=== PATIENT | female | born 1975 | race Caucasian/White ===

== ENCOUNTER 2019-04-20 21:41 | Observation (INO) ==
[2019-04-20] MEDS ORDERED: LORazepam 1 MG/2 ML VIAL IV STA (22:02)
[2019-04-20 22:23] LABS: Basophils # (auto) 0.04 K/uL (0-0.2); Basophils % (auto) 0.5 %; Eosinophils # (auto) 0.57 K/uL (0-0.5); Eosinophils % (auto) 7.5 %; Hematocrit (blood only) 39.2 % (37-47); Hemoglobin 13.2 g/dL (12.0-16.0); Immature Granulocytes # (auto) 0.02 K/uL (0.00-0.02); Immature Granulocytes % (auto) 0.3 %; Lymphocytes # (auto) 1.13 K/uL (1.2-3.4); Lymphocytes % (auto) 14.8 %; Mean Corpuscular Hemoglobin 27.8 pg (25-34); Mean Corpuscular Hgb Conc 33.7 g/dL (32-36); Mean Corpuscular Volume 82.7 fL (80-100); Mean Platelet Volume 10.1 fL (7.4-10.4); Monocytes # (auto) 0.57 K/uL (0.11-0.59); Monocytes % (auto) 7.5 %; Neutrophils # (auto) 5.28 K/uL (1.4-6.5); Neutrophils % (auto) 69.4 %; Platelet Count 224 K/uL (130-400); RDW Coefficient of Variation 13.3 % (11.5-14.5); RDW Standard Deviation 40.8 fL (36.4-46.3); Red Blood Count 4.74 M/uL (4.2-5.4); White Blood Count 7.61 K/uL (4.8-10.8)
--- NOTE | 2019-04-20 22:31 | XRay Report ---
SINGLE VIEW CHEST CLINICAL HISTORY: Atypical chest pain. FINDINGS: An AP, portable, upright chest radiograph is compared to study dated 05/11/2018. The examin ation is degraded by portable technique and patient rotation. The cardiomediastinal silhouette is unr emarkable. The lungs and pleural spaces are clear. No pneumothorax is seen. The bony thorax is grossl y intact. IMPRESSION: No active disease in the chest. Electronically signed by: Shyam Zaman M.D. 04/20/2019 10:28 PM
[2019-04-20 22:40] LABS: Alanine Aminotransferase 31 U/L (12-78); Aspartate Aminotransferase 18 U/L (15-37); BUN Creatinine Ratio 19.1 (10-20); Blood Urea Nitrogen 15 mg/dl (7-18); Calcium 9.3 mg/dl (8.5-10.1); Carbon Dioxide 25 mmol/L (21-32); Chloride 106 mmol/L (98-107); Creatinine Clr Calc Pharmacy 103.9 ml/min; Est GFR (African American) 107.3; Est GFR (Non-African American) 92.6; Glucose 116 mg/dl (70-99); Lipase 205 U/L (73-393); Potassium 3.7 mmol/L (3.5-5.1); Sodium 137 mmol/L (136-145)
[2019-04-20 22:45] LABS: Albumin Globulin Ratio 1.1 (0.9-2); Alkaline Phosphatase 91 U/L (45-117); Bilirubin,Total 0.4 mg/dl (0.2-1); Globulin 3.6 gm/dl (2.5-4.0); Total Protein 7.6 gm/dl (6.4-8.2); Troponin I < 0.015 ng/ml (0-0.045)
--- NOTE | 2019-04-20 23:42 | Emergency Department Note ---
History of Present Illness General Chief complaint: Cardiac Assessment Stated complaint: HIGH BP, MINOR CHEST PAIN, CARDIAC HISTORY History of Present Illness Maximum Pain Intensity: 4 This 44-year-old presents to the ER complaining of chest pain Location: Mid chest Quality: Uncomfortable Severity: Moderate Duration: This evening Timing: Started tonight Context: Patient was concerned and came in Modifying factors: better with nitroglycerin; worse with nothing Patient states tonight shortly after dinner she felt like she had to have a bowel movement and had a large one and then got lightheaded and felt like she might nearly passed out. She then developed chest pain. She checked her blood pressure and was high. She took a nitroglycerin and symptoms improved. Her blo od pressure still high so she took another nitroglycerin. She was concerned and came in. She is currently chest pain-free. She states now she just feels anxious. She had a heart attack and stent placed last year by Dr. Campuzano. She states since then she is been very anxious and nervous over her heart problem. She states she is been eating better. Patient does not smoke. Patient denies dyspnea, abdominal pain, fever, chills. She did feel nauseous and sweaty with her symptoms. Home Medications Home Medications Medication Instructions Recorded Confirmed Type enalapril maleate 40 mg PO QPM 04/13/18 04/20/19 History aspirin [Ecotrin Low Strength] 81 mg PO QAM 30 Days #30 tab 05/14/18 04/20/19 Rx nitroglycerin [Nitrostat] 0.4 mg SUBLINGUAL PRN PRN #30 tab 05/14/18 04/20/19 Rx clonazepam 0.5 mg tablet 0.5 mg PO .COMPLEX #30 tab 02/01/19 04/20/19 Rx clopidogrel 75 mg tablet 75 mg PO QAM 30 Days #30 tab 04/08/19 04/20/19 Rx atorvastatin 80 mg PO QAM 04/20/19 04/20/19 History metoprolol tartrate 100 mg PO BID 04/20/19 04/20/19 History Allergies Allergy/AdvReac Type Severity Reaction Status Date / Time No Known Drug Allergies Allergy Unknown Verified 04/21/19 02:11 Past Med/Surg History Medical History Abnormal TSH Depression with anxiety Encounter for routine gynecological examination H/O: hysterectomy High blood pressure Hyperlipidemia Presence of drug coated stent in LAD coronary artery Severe cervical dysplasia Sleep disturbance Family History Unknown Hypertension Family history of heart disease (Reported) Breast cancer Mother Diabetes Hypertension Father Lung cancer Social History Beliefs That Will Affect Care: None Current Living Situation: Family Feels Safe at Home: Yes Smoking Status: Never smoker Hx Alcohol Use: No Hx Substance Use: No Review of Systems A total of 10 systems reviewed and were otherwise negative Physical Exam Vital Signs Vital Signs - 24 hr 04/20/19 21:44 04/20/19 22:20 04/20/19 22:21 Temperature 36.7 C Temperature Source Oral Pulse Rate 70 Pulse Rate [Left Finger] Pulse Rhythm [Left Finger] Pulse Strength [Left Finger] Respiratory Rate 20 Respiratory Effort / Characteristics Non-Labored Spontaneous Respiratory Depth Normal Respiratory Pattern Blood Pressure 164/101 H Blood Pressure [Left Arm] Blood Pressure Mean 122 Blood Pressure Mean [Left Arm] Blood Pressure Position Sitting Blood Pressure Position [Left Arm] Pulse Oximetry 98 94 94 Oxygen Delivery Method Room Air Room Air Room Air Sepsis Recent Fever Within 48 Hours No Sepsis Action Taken by Nursing No Action Required 04/20/19 22:33 04/20/19 23:30 04/21/19 00:30 Temperature Temperature Source Pulse Rate Pulse Rate [Left Finger] 67 60 57 L Pulse Rhythm [Left Finger] Regular Regular Regular Pulse Strength [Left Finger] Normal Normal Respiratory Rate 17 18 18 Respiratory Effort / Characteristics Non-Labored Non-Labored Spontaneous Non-Labored Spontaneous Respiratory Depth Normal Normal Normal Respiratory Pattern Regular Regular Regular Blood Pressure Blood Pressure [Left Arm] 130/90 119/82 115/66 Blood Pressure Mean Blood Pressure Mean [Left Arm] 103 94 82 Blood Pressure Position Blood Pressure Position [Left Arm] Lying Lying Pulse Oximetry 97 95 95 Oxygen Delivery Method Room Air Room Air Room Air Sepsis Recent Fever Within 48 Hours Sepsis Action Taken by Nursing 04/21/19 02:06 04/21/19 02:29 Temperature Temperature Source Pulse Rate 67 Pulse Rate [Left Finger] 61 Pulse Rhythm [Left Finger] Pulse Strength [Left Finger] Respiratory Rate 18 18 Respiratory Effort / Characteristics Non-Labored Spontaneous Respiratory Depth Normal Respiratory Pattern Blood Pressure 125/87 Blood Pressure [Left Arm] 125/87 Blood Pressure Mean Blood Pressure Mean [Left Arm] 99 Blood Pressure Position Blood Pressure Position [Left Arm] Lying Pulse Oximetry 95 95 Oxygen Delivery Method Room Air Room Air Sepsis Recent Fever Within 48 Hours Sepsis Action Taken by Nursing VITALS: Vitals are noted on the nurse's note and reviewed by myself. Vital signs stable. GENERAL: Anxious appearing female, in no acute distress, nondiaphoretic, well- developed well-nourished. SKIN: Capillary reflex less than 2 seconds. HEENT: Normocephalic. PERRLA. EOMI. Nares patent. Mucous membranes moist. Neck is supple without nuchal rigidity. HEART: Regular rate and rhythm, nontender to palpation chest LUNGS: Clear to auscultation bilaterally without wheezes, rales or rhonchi. No retractions or accessory muscle use. ABDOMEN: Positive bowel sounds x 4. Normal tympanic percussion. Soft, nontender, without masses or organomegaly. Carballo sign negative. No guarding or rebound tenderness. MUSCULOSKELETAL: No gross musculoskeletal defects. NEURO: Patient was alert and oriented to person place and time. Normal sensation to light and sharp touch. No focal neurological deficits. Course Administered Medications Discontinued Medications Lorazepam (Ativan) 1 mg in 2 mls @ 2 mls/min IV NOW STA Stop: 04/20/19 22:03 Last Admin: 04/20/19 22:26 Dose: 2 mls/min Documented by: [id number] Medical Decision Making Medical Records Attestation: I reviewed the patient's medical records. Home Medications Current Medication List: was personally reviewed by me Laboratory Data Attestation: I reviewed the patient's lab results. Result diagrams: 04/20/19 22:10 04/20/19 22:10 Lab Results 04/20/19 04/20/19 04/20/19 Range/Units 22:10 22:10 22:17 WBC 7.61 (4.8-10.8) K/uL RBC 4.74 (4.2-5.4) M/uL Hgb 13.2 (12.0-16.0) g/dL Hct 39.2 (37-47) % MCV 82.7 (80-100) fL MCH 27.8 (25-34) pg MCHC 33.7 (32-36) g/dL RDW Std Deviation 40.8 (36.4-46.3) fL RDW Coeff of Fidelia 13.3 (11.5-14.5) % Plt Count 224 (130-400) K/uL MPV 10.1 (7.4-10.4) fL Immature Gran % (Auto) 0.3 % Neut % (Auto) 69.4 % Lymph % (Auto) 14.8 % Cache % (Auto) 7.5 % Eos % (Auto) 7.5 % Baso % (Auto) 0.5 % Immature Gran # (Auto) 0.02 (0.00-0.02) K/uL Neut # (Auto) 5.28 (1.4-6.5) K/uL Lymph # (Auto) 1.13 L (1.2-3.4) K/uL Cache # (Auto) 0.57 (0.11-0.59) K/uL Eos # (Auto) 0.57 H (0-0.5) K/uL Baso # (Auto) 0.04 (0-0.2) K/uL Sodium 137 (136-145) mmol/L Potassium 3.7 (3.5-5.1) mmol/L Chloride 106 (98-107) mmol/L Carbon Dioxide 25 (21-32) mmol/L Anion Gap 6.0 (3-11) BUN 15 (7-18) mg/dl Creatinine 0.77 (0.6-1.2) mg/dl Est Cr Clr Drug Dosing 103.9 ml/min Est GFR ( Amer) 107.3 Est GFR (Non-Af Amer) 92.6 BUN/Creatinine Ratio 19.1 (10-20) Glucose 116 H (70-99) mg/dl Calcium 9.3 (8.5-10.1) mg/dl Total Bilirubin 0.4 (0.2-1) mg/dl AST 18 (15-37) U/L ALT 31 (12-78) U/L Alkaline Phosphatase 91 (45-117) U/L POC Troponin I < 0.03 (0-0.045) ng/ml Troponin I < 0.015 (0-0.045) ng/ml Total Protein 7.6 (6.4-8.2) gm/dl Albumin 4.0 (3.4-5.0) gm/dl Globulin 3.6 (2.5-4.0) gm/dl Albumin/Globulin Ratio 1.1 (0.9-2) Lipase 205 (73-393) U/L Imaging Data Attestation: I personally reviewed and interpreted this imaging study as follows: MDM Narrative Prior records/ancillary studies reviewed. Triage Nursing notes reviewed. Additional history obtained from family. The patient's history was concerning for chest pain. Differential diagnosis: Etiologies such as cardiac ischemia, aortic dissection, pulmonary embolism, pneumonia, pneumothorax, musculoskeletal, infections, pericarditis, myocarditis, esophageal rupture, gastrointestinal, as well as others were entertained. Physical examination: As above. ER treatment provided: Ativan On reassessment the patient felt better. Diagnostic interpretation by me: The electrocardiogram was negative for pathologic change. Normal sinus, normal intervals, no acute ST-T wave changes. Impression normal sinus rhythm interpreted by myself EKG ordered for chest pain I think arrhythmia is unlikely. EKG shows normal sinus rhythm with no interval abnormalities such as QT prolongation or WPW. There are no findings to suggest Brugada syndrome. Cardiac monitoring in the emergency department reveals no tachycardic or bradycardic dysrhythmia. Hypertrophic cardiomyopathy was considered but there are no clear historical elements pointing toward this. EKG is not suggestive. The QRS voltage is not extremely large and there are no suggestive Q waves. The labs revealed troponin negative Imaging studies: SINGLE VIEW CHEST CLINICAL HISTORY: Atypical chest pain. FINDINGS: An AP, portable, upright chest radiograph is compared to study dated 05/11/2018. The examination is degraded by portable technique and patient rotation. The cardiomediastinal silhouette is unremarkable. The lungs and pleural spaces are clear. No pneumothorax is seen. The bony thorax is grossly intact. IMPRESSION: No active disease in the chest. Electronically signed by: Shyam Zaman M.D. 04/20/2019 10:28 PM Dictated: 04/20/192227 Transcribed: 04/20/192227 HEART SCORE: Hx: high/mod/low suspicion: 1 ECG: ST depression/nonspecific changes/normal: 0 Age: Greater than 65/45-64/less than 45: 1 Risk factors: (Hypertension, hyperlipidemia, diabetes, coronary disease, tobacco use, cocaine use): 1 Troponin: Greater than 2 times normal limits/1-2 times normal limits/normal: 0 Total: 3 Consultation: A consultation was placed with the hospitalist, Dr. Doyle. The case was discussed and diagnostics were reviewed. The patient was evaluated in the ER for further treatment. Exam and history seem consistent with chest pain. Patient has had a prior heart attack. Heart score is 3. She is currently pain-free after taking nitroglycerin. Patient will be evaluated by medicine for admission. Patient is agreeable. First troponin is negative. By the evaluation outlined above emergent etiologies such as aortic dissection, pulmonary embolism, pneumonia, pneumothorax, infections, pericarditis, myocarditis, gastrointestinal, as well as others were deemed relatively unlikely. The pt informed about the findings as listed above. All questions were answered and pleased with the treatment. The chart was completed utilizing [email or web address] Speech voice recognition software. Grammatical errors, random word insertions, pronoun errors, and incomplete sentences are an occassional consequence of this system due to software limitations, ambient noise, and hardware issues. Any formal questions or concerns about the content, text, or information contained within the body of this dictation should be directly addressed to the physician assistant portfolio manager for clarification. Impression & Plan Chest pain Discharge Plan Visit Data Chief Complaint: Cardiac Assessment Stated Complaint: HIGH BP, MINOR CHEST PAIN, CARDIAC HISTORY ED Provider: Neto Talbert ED Midlevel Provider: Mohini Gannon Discharge Problem: Chest pain Patient Disposition: Being Evaluated by Hospitalist Condition: Good Discharge Instructions Interventions: ED Discharge Assessment Last Done: 04/21/19 02:29 Forms Stand Alone Forms: [facility] [place] [employer] Prescriptions Prescriptions: No Action clopidogrel 75 mg tablet 75 mg PO QAM 30 Days Qty: 30 RF: 11 clonazepam 0.5 mg tablet 0.5 mg PO .COMPLEX Qty: 30 RF: 0 enalapril maleate 20 mg tablet 40 mg PO QPM RF: 0 aspirin [Ecotrin Low Strength] 81 mg Tablet,Delayed Release (Dr/Ec) 81 mg PO QAM 30 Days Qty: 30 RF: 11 nitroglycerin [Nitrostat] 0.4 mg Tablet, Sublingual 0.4 mg Sublingual PRN PRN (Reason: chest pain) Qty: 30 RF: 1 atorvastatin 80 mg tablet 80 mg PO QAM RF: 0 metoprolol tartrate 100 mg tablet 100 mg PO BID RF: 0 Referrals Referrals: Balabanova-Tsarnakov,Ralitsa V., MD [Primary Care Provider] - Discharge Problem: Chest pain Qualifiers: Chest pain type: unspecified Qualified Code(s): R07.9 - Chest pain, unspecified
--- NOTE | 2019-04-21 02:16 | History & Physical Report ---
Date of Service April 21, 2019 Assessment & Plan (1) Chest pain: 44-year-old female with history of a STEMI in April 2018, severe coronary artery disease, ischemic cardiomyopathy, sustained VT, hypertension and anxiety presents after feeling ill this evening and having chest pain. Chest pain Concern for possible MS versus hypertensive urgency versus viral illness vs. GERD Afebrile, WBC normal EK sinus rhythm, QTC 427 Q waves in anterior leads, history of anterior MS Troponin negative Chest x-ray negative Cath 04/2018: Stent to occluded mid LAD, moderate to severe non-culprit branch vessel disease, 50 to 60% ostial second diagonal, 70 to 80% proximal right PLB2 Echo 04/2018: EF 55%, focal thickness basal septum, no LVO F obstruction, anterior septal apex and inferior apical segment akinesis, mid to distal septum hypokinetic Trend troponin Echo in the morning Monitor on telemetry Hypertension/hyperlipidemia/CAD/STEMI with LAD stent Continue home clopidogrel, aspirin, atorvastatin, enalapril and metoprolol Continue Nitro as needed Anxiety Continue home clonazepam as needed FEN/GI: LR 125 cc/h, n.p.o. for possible procedure DVT prophylaxis: Low risk, SCDs, encourage ambulation Code: Full Disposition: MedSurg with telemetry (2) CAD (coronary artery disease): (3) Presence of drug coated stent in LAD coronary artery: (4) Hyperlipidemia: (5) Depression with anxiety: (6) ST elevation MS (STEMI): (7) Hypertension: History of Present Illness Chief Complaint: Chest pain Primary Care Provider: Angi Treadwell MD 44-year-old female with history of a STEMI in April 2018, severe coronary artery disease, ischemic cardiomyopathy, sustained VT, hypertension and anxiety presents after feeling ill this evening and having chest pain. Patient reports she went out to eat around 5:30 PM. She had some fish, salad and fries then around 8 PM she felt like she was going to pass out felt warm, diaphoretic, lightheaded and had some right-sided abdominal pain. Then she had a loose bowel movement (before going out to eat she felt constipated and took a Dulcolax while she ate). After diarrhea episode she experienced chest pain which was midsternal, tightness like and 2 out of 10. She denies any radiation of pain to her neck jaw, arms and back. She took an nitro which helped with the pain. At the time she also measured her blood pressure and noted diastolic blood pressure of 119 and 130. This was concerning to her as she usually has diastolics in 60s. She took 2 more nitros as it was helping her blood pressure especially. She is currently chest pain-free. Denies any chills, headache, lightheadedness, shortness of breath, nausea, vomiting, abdominal pain, dysuria, hematuria, kailey tochezia, melena Work-up was reassuring in the ED Allergies Allergy/AdvReac Type Severity Reaction Status Date / Time No Known Drug Allergies Allergy Unknown Verified 04/21/19 02:11 Home Medications Home Medications Medication Instructions Recorded Confirmed Type enalapril maleate 40 mg PO QPM 04/13/18 04/20/19 History aspirin [Ecotrin Low Strength] 81 mg PO QAM 30 Days #30 tab 05/14/18 04/20/19 Rx nitroglycerin [Nitrostat] 0.4 mg SUBLINGUAL PRN PRN #30 tab 05/14/18 04/20/19 Rx clonazepam 0.5 mg tablet 0.5 mg PO .COMPLEX #30 tab 02/01/19 04/20/19 Rx clopidogrel 75 mg tablet 75 mg PO QAM 30 Days #30 tab 04/08/19 04/20/19 Rx atorvastatin 80 mg PO QAM 04/20/19 04/20/19 History metoprolol tartrate 100 mg PO BID 04/20/19 04/20/19 History Past Med/Surg History Medical History Abnormal TSH Depression with anxiety Encounter for routine gynecological examination H/O: hysterectomy High blood pressure Hyperlipidemia Presence of drug coated stent in LAD coronary artery Severe cervical dysplasia Sleep disturbance Family History Unknown Hypertension Family history of heart disease (Reported) Breast cancer Mother Diabetes Hypertension Father Lung cancer Social History Preferred Language: Yi Emergency Medicine Medical Director Required: No Beliefs That Will Affect Care: None Current Living Situation: Family Other Information That Helps Us Care for You: No Feels Safe at Home: Yes Safety Concerns: Feels Safe At This Time Smoking Status: Never smoker Do You Dip or Chew Tobacco: No ; Second Hand Exposure: No ; Tobacco Cessation Education Requested by Patient: No Hx Alcohol Use: No Hx Substance Use: No Review of Systems Review of Systems: As per HPI Physical Exam Physical Exam: General: In NAD HEENT: dry oral mucosa Neuro: A&O x 4 Pulm: CTAB equal breath sounds bilaterally CV: RRR, no m/r/g Abdomen:+BS, no TTP in all quadrants, non-distended, negative almeida's sign LE: no LE edema, no calf TTP Results & Data Vital Signs (Past 12 Hours) Vital Signs Temp Pulse Pulse Resp BP BP Pulse Ox 04/21/19 02:06 61 18 125/87 95 04/21/19 00:30 57 L 18 115/66 95 04/20/19 23:30 60 18 119/82 95 04/20/19 22:33 67 17 130/90 97 04/20/19 22:21 94 04/20/19 22:20 94 04/20/19 21:44 36.7 C 70 20 164/101 H 98 Laboratory Results Abnormal lab results 04/20/19 04/20/19 Range/Units 22:10 22:10 Lymph # (Auto) 1.13 L (1.2-3.4) K/uL Eos # (Auto) 0.57 H (0-0.5) K/uL Glucose 116 H (70-99) mg/dl Diagnostic Findings SINGLE VIEW CHEST CLINICAL HISTORY: Atypical chest pain. FINDINGS: An AP, portable, upright chest radiograph is compared to study dated 05/11/2018. The examination is degraded by portable technique and patient rotation. The cardiomediastinal silhouette is unremarkable. The lungs and pleural spaces are clear. No pneumothorax is seen. The bony thorax is grossly intact. IMPRESSION: No active disease in the chest. Code Status & VTE Plan Code Status Full VTE Prophylaxis Plan VTE Prophylaxis will be ordered: Yes Supervising Physician Co-Signing Physician Notes Patient seen and examined, chart reviewed, case discussed with Dr. Jones and I agree with her assessment and plan as documented above Resident Activity Tracking Resident Involvement: Resident Care Provided Care Provided: Adult Hospital Medicine (1) ST elevation MS (STEMI) Involved coronary artery: unspecified coronary artery Qualified Code(s): I21.3 - ST elevation (STEMI) myocardial infarction of unspecified site (2) Chest pain Chest pain type: unspecified Qualified Code(s): R07.9 - Chest pain, unspecified
[2019-04-21] MEDS ORDERED: ONDANSETRON INJ 2 MG/ML 2 ML VIAL IV PRN (02:51)
[2019-04-21] MEDS ORDERED: clonazePAM 0.5 MG TAB PO PRN (02:51)
[2019-04-21] MEDS ORDERED: NITROGLYCERIN SL 0.4 MG/TAB TAB SL PRN (02:51)
[2019-04-21] MEDS: LACTATED RINGER'S 1,000 ML IV SCH ×2 (03:10→11:25)
--- NOTE | 2019-04-21 04:12 | Billing Data ---
Coding Level of Care Code 09126 OBS Care - Level 3
[2019-04-21] MEDS ORDERED: ASPIRIN 81 MG ECTAB PO SCH (09:00)
[2019-04-21] MEDS ORDERED: ATORVASTATIN 40 MG TAB PO SCH (09:00)
[2019-04-21] MEDS ORDERED: CLOPIDOGREL BISULFATE 75 MG TAB PO SCH (09:00)
[2019-04-21] MEDS ORDERED: METOPROLOL TARTRATE 100 MG TAB PO SCH (09:00)
[2019-04-21] MEDS ORDERED: PERFLUTREN LIPID MICROSPHERE (DEFINITY) IV ONE (09:43)
--- NOTE | 2019-04-21 19:53 | Discharge Summary ---
Date of Service April 21, 2019 Admission HPI Per Admitting Provider 44-year-old female with history of a STEMI in April 2018, severe coronary artery disease, ischemic cardiomyopathy, sustained VT, hypertension and anxiety presents after feeling ill this evening and having chest pain. Patient reports she went out to eat around 5:30 PM. She had some fish, salad and fries then around 8 PM she felt like she was going to pass out felt warm, diaphoretic, lightheaded and had some right-sided abdominal pain. Then she had a loose bowel movement (before going out to eat she felt constipated and took a Dulcolax while she ate). After diarrhea episode she experienced chest pain which was midsternal, tightness like and 2 out of 10. She denies any radiation of pain to her neck jaw, arms and back. She took an nitro which helped with the pain. At the time she also measured her blood pressure and noted diastolic blood pressure of 119 and 130. This was concerning to her as she usually has diastolics in 60s. She took 2 more nitros as it was helping her blood pressure especially. She is currently chest pain-free. Denies any chills, headache, lightheadedness, shortness of breath, nausea, vomiting, abdominal pain, dysuria, hematuria, hematochezia, melena Work-up was reassuring in the ED Admission Exam Per Admitting Provider General: In NAD HEENT: dry oral mucosa Neuro: A&O x 4 Pulm: CTAB equal breath sounds bilaterally CV: RRR, no m/r/g Abdomen:+BS, no TTP in all quadrants, non-distended, negative almeida's sign LE: no LE edema, no calf TTP Principal Diagnosis Chest Pain Discharge Exam General: In NAD HEENT: dry oral mucosa Neuro: A&O x 4 Pulm: CTAB equal breath sounds bilaterally CV: RRR, no m/r/g Abdomen:+BS, no TTP in all quadrants, non-distended, negative almeida's sign LE: no LE edema, no calf TTP Discharge Data Allergies Allergy/AdvReac Type Severity Reaction Status Date / Time No Known Drug Allergies Allergy Unknown Verified 04/21/19 02:11 Consultations 04/20/19 23:35 ED Decision to Admit Stat 04/21/19 12:20 Consult KAYODEG speech language assistant Routine Hospital Course (1) Chest pain: 44-year-old female with history of a STEMI in April 2018, severe coronary artery disease, ischemic cardiomyopathy, sustained VT, hypertension and anxiety presents after feeling ill this evening and having chest pain. Chest pain Patient with her history of major STEMI a year ago Afebrile, WBC normal EK sinus rhythm, QTC 427 Q waves in anterior leads, history of anterior CT Troponin negative Chest x-ray negative Cath 04/2018: Stent to occluded mid LAD, moderate to severe non-culprit branch vessel disease, 50 to 60% ostial second diagonal, 70 to 80% proximal right PLB2 Echo 04/2018: EF 55%, focal thickness basal septum, no LVO F obstruction, anterior septal apex and inferior apical segment akinesis, mid to distal septum hypokinetic Repeat echo obtained on day of discharge, no evidence of any new disease Patient asymptomatic and discharged home Will get outpatient stress testing scheduled between now and follow up with Dr. Campuzano on 05/07 Hypertension/hyperlipidemia/CAD/STEMI with LAD stent Continued home clopidogrel, aspirin, atorvastatin, enalapril and metoprolol without change Anxiety Continue home clonazepam as needed Cardiology follow up and stress test in place (2) CAD (coronary artery disease): (3) Presence of drug coated stent in LAD coronary artery: (4) Hyperlipidemia: (5) Depression with anxiety: (6) ST elevation CT (STEMI): (7) Hypertension: Total Time Total Time Spent Total Time Spent (In Minutes): 35 Discharge Plan Discharge Items Patient Disposition: Home - Self-Care Reason For Visit: CHEST PAIN Discharge Diagnosis: Chest Pain Condition on Discharge: Good Activity: Per Instructions section Non-emergency contact: Primary Care Provider and Sales And Service Engineer Call non-emergency contact if: you have any medication questions Follow-up/Referrals: Angi Simons MD [Primary Care Provider] - Diet: Regular Addtl Attending Provider Instructions: Ms. Koehler it was a pleasure to meet and take care of you for your chest pain here at [facility]. We have extensively worked up your chest pain a nd have found no heart related cause at this time for your chest pain, however because of your history and the fact that symptoms were relieved with nitro it is not impossible that this could be cardiac mediated. We will be setting up a stress test for you as an outpatient to further evaluate you before your appointment with Dr. Campuzano. In the mean time try to not exert yourself too much and just continue with regular every day activities. At this time we feel that you are very stable and safe to be discharged home. It was an absolute pleasure meeting you and I wish you all of the best moving forward. You appear to be in good hands with [facility] Tell her to keep up the good work! Sincerely, Chucky Ospina MD Pending Studies at Discharge: No Stand-Alone Forms: My [facility], Smoking Cessation Medications and DC Order Prescriptions: Continued clopidogrel 75 mg tablet 75 mg PO QAM 30 Days Qty: 30 RF: 11 clonazepam 0.5 mg tablet 0.5 mg PO .COMPLEX Qty: 30 RF: 0 enalapril maleate 20 mg tablet 40 mg PO QPM RF: 0 aspirin [Ecotrin Low Strength] 81 mg Tablet,Delayed Release (Dr/Ec) 81 mg PO QAM 30 Days Qty: 30 RF: 11 nitroglycerin [Nitrostat] 0.4 mg Tablet, Sublingual 0.4 mg Sublingual PRN PRN (Reason: chest pain) Qty: 30 RF: 1 atorvastatin 80 mg tablet 80 mg PO QAM RF: 0 metoprolol tartrate 100 mg tablet 100 mg PO BID RF: 0 Discharge Orders: Discharge Order (Routine); Ordered 04/21/19 Ordered By: Chucky Ospian Admission Data Admit Date/Time: 04/21/19 02:13 Attending Provider: Kelsy Dawson Admit Provider: Nedra Doyle Primary Care Provider: Angi Simons V. Other Providers: Nedra Doyle Other Interventions: Discharge Summary Assessment (RN) Last Done: 04/21/19 13:29 DC Date/Time DO NOT enter until pt leaves facility: 04/21/19 14:26 Supervising Physician Co-Signing Physician Notes Resident Physician Supervision Note: I independently interviewed and examined the patient and verified the bass history and physical, reviewed labs and image studies, discussed the case with the resident Dr. Ospina and agree with the findings and care plan. Resident Activity Tracking Resident Involvement: Resident Care Provided Care Provided: Adult [facility]
[2019-04-21] MEDS ORDERED: ENALAPRIL MALEATE 10 MG TAB PO SCH (21:00)
== END 2019-04-21 14:26 | disposition home or self-care (01) ==
LOC: 2S 21:41 → ED 21:41 → SUATTDRO 04-21 02:13 → 2S 04-21 02:29